=== PATIENT | female | born 1990 | race Caucasian/White ===

== ENCOUNTER 2017-12-27 11:08 | Outpatient (CLI) | payer BC ==
--- NOTE | 2017-12-27 13:26 | RAD ---
LEFT SHOULDER 3 VIEWS: HISTORY: Left shoulder pain. FINDINGS/IMPRESSION: No acute fracture, dislocation, or bony destruction is identified. POS: [facility]
== END 2017-12-27 11:09 | disposition home or self-care (01) ==
LOC: SCSRAD 11:08
PROVIDERS: ATTEND Chiropractor
DX: M75.22 Bicipital tendinitis, left shoulder (principal)